=== PATIENT | male | born 1940 | race Caucasian/White ===

== ENCOUNTER → 2017-05-23 | Outpatient (CLI) | payer MEDICARE, OTHER ==
--- NOTE | 2017-05-24 12:45 | RADIOLOGY REPORT (SQ) ---
EXAM DESCRIPTION: PET CT SKULL/THIGH COMPLETED DATE/TIME: 05/23/2017 9:55 pm REASON FOR STUDY: SECONDARY MALIGNANT NEOPLASM OF UNSPECIFIED SITE C79.9 SECONDARY MALIGNANT NEOPLA SM OF UNSPECIFIED SITE COMPARISON: CT abdomen pelvis 09/13/2013 [facility] CT chest 04/27/2017 RADIONUCLIDE AND DOSE: 10.4 mCi F18 FDG The route of agent administration: Intravenous FASTING BLOOD SUGAR: 83 mg/dl CONTRAST TYPE AND DOSE: No CT contrast given. TECHNIQUE: Blood glucose level was verified. Above dose of FDG was injected intravenously. 2-D seg mented attenuation correction images were obtained from the base of the skull to the midthighs. Nonc ontrast CT images were obtained for attenuation correction and fusion with emission images. CT image s were performed without oral or intravenous contrast and are not sensitive for parenchymal lesions. A series of overlapping emission PET images were obtained. Images reviewed and manipulated at [facility] work station by the radiologist. Images stored on PACS. LIMITATIONS: None. FINDINGS: HEAD AND NECK: No areas of abnormal metabolic activity in the soft tissues of the head and neck. CHEST: No areas of abnormal metabolic activity in the chest. ABDOMEN AND PELVIS: There is diffuse increased uptake along the hepatic flexure colon and splenic fle xure colon, SUV ranging from 6 through 10. Areas of colitis are suspected. There are ill-defined areas of increased uptake in the liver ranging from 5.5 to 6.4 SUV. Consider l iver MRI without and with contrast to evaluate for diffusely infiltrative hepatocellular malignancy o r cholangitis PROXIMAL LOWER EXTREMITIES: No areas of abnormal metabolic activity in the soft tissues of the lower extremities. BONES: There are multiple lytic lesions with increased marrow activity worrisome for either myeloma o r metastatic disease. Findings are as follows: Bilateral proximal humeral metaphysis with diffuse increased uptake SUV 3.3. Manubrium sternum lytic lesions 3.8 to 4.4 SUV T4 vertebral body lytic lesion SUV 2.9 T7 vertebral body lytic lesion SUV 3 Leftward S1 level lytic lesion with SUV 5.5 Medial left acetabular lytic lesion with SUV 5.6. ADDITIONAL CT FINDINGS: Fatty left inguinal hernia. Colonic diverticulosis. Degenerative disc ortega es lumbar spine. T11 hemangioma. OTHER: Liver background activity 3.5 SUV. Blood pool background activity 2.0 SUV IMPRESSION: Diffuse lytic lesions in the bones with metabolic activity above blood pool. Findings a re worrisome for either myeloproliferative disease or metastatic disease Colonic activity along the hepatic flexure and splenic flexure, abnormal but nonspecific. TECHNICAL DOCUMENTATION: JOB ID: [id number] [employer]- All Rights Reserved Reading location - IP/workstation name: [email or web address]
== END ==
LOC: RAD 17:32
PROVIDERS: ATTEND Specialist/Technologist Athletic Trainer
DX: C79.9 Secondary malignant neoplasm of unspecified site (principal); K57.30 Diverticulosis of large intestine without perforation or abscess without bleeding; D18.09 Hemangioma of other sites; K40.90 Unilateral inguinal hernia, without obstruction or gangrene, not specified as recurrent
CPT/HCPCS: 78815; A9552

== ENCOUNTER 2018-10-01 19:16 | Emergency (ER) | payer MEDICARE, OTHER ==
[~2018-10-01 19:16] MED LIST: ETOMIDATE INJ/PF 20 MG/10 ML SDV IV ONE; SUCCINYLCHOLINE CHLORIDE INJ 200 MG/10 ML VIAL ONE; VECURONIUM BROMIDE INJ 10 MG VIAL IV ONE
--- NOTE | 2018-10-01 20:12 | ER Document Report ---
ED General - General Chief Complaint: Probable Seizure Stated Complaint: POSSIBLE SEIZURE Time Seen by Provider: 10/01/18 19:24 Primary Care Provider: VAMSHI RANDHAWA DO [Primary Care Provider] - Follow up as needed Mode of Arrival: Medic TRAVEL OUTSIDE OF THE [place] IN LAST 30 DAYS: No - HPI Notes: No history is able to be obtained from patient. History was obtained from EMS. EMS states the patient was talking to a police communications operator on the side of the road when he had a seizure. At this time police called EMS. EMS states when they came the patient was talking but then had another seizure. They administered Versed. Patient then had another seizure in the back of the ambulance and patient was given Ativan. No further seizures after this. They states each seizure lasted approximately 30 to 45 seconds. It involved tonic-clonic diffuse activity. Patient has no history known of seizure disorder or recent trauma. No known recent history of fevers illnesses of vomiting or diarrhea. Patient will not communicate or follow commands so no history can be obtained from patient. Symptoms are intermittent. They were severe. Nothing appeared to make them worse. They were better with benzodiazepines. No known radiation of the symptoms. - Related Data Allergies/Adverse Reactions: No Known Allergies Allergy (Verified 08/21/12 09:20) Past Medical History - General Information source: Emergency Med Personnel - Social History Smoking Status: Never Smoker Frequency of alcohol use: None Drug Abuse: None Family History: Reviewed & Not Pertinent - Past Medical History Cardiac Medical History: Denies: Hx Coronary Artery Disease, Hx Heart Attack, Hx Hypertension Pulmonary Medical History: Denies: Hx Asthma, Hx Bronchitis, Hx COPD, Hx Pneumonia Neurological Medical History: Denies: Hx Cerebrovascular Accident, Hx Seizures GI Medical History: Reports: Hx Crohn's Disease Musculoskeletal Medical History: Reports Hx Arthritis - Generalized Past Surgical History: Reports: Hx Orthopedic Surgery. Denies: Hx Pacemaker - Immunizations Hx Diphtheria, Pertussis, Tetanus Vaccination: No Review of Systems - Review of Systems -: Yes ROS unobtainable due to patient's medical condition - Patient is nonverbal at this time and will not follow simple commands. Physical Exam - Vital signs Vitals: Pulse Ox 98 10/01/18 21:32 Interpretation: Hypertensive - General General appearance: Lethargic In distress: None - HEENT Head: Normocephalic, Atraumatic Eyes: Normal Pupils: PERRL Mouth/Lips: Normal Mucous membranes: Moist Neck: Normal - Respiratory Respiratory status: No respiratory distress Chest status: Nontender Breath sounds: Normal Chest palpation: Normal - Cardiovascular Rhythm: Regular Heart sounds: Normal auscultation Murmur: No - Abdominal Inspection: Normal Distension: No distension Bowel sounds: Normal Tenderness: Nontender Organomegaly: No organomegaly - Back Back: Normal, Nontender - Extremities General upper extremity: Normal inspection, Nontender, Normal color, Normal tem perature General lower extremity: Normal inspection, Nontender, Edema - Patient has 2+ bilateral lower extremity edema, Normal color, Normal temperature. No: Raquel's sign - Neurological Cognition: Confused Orientation: Disoriented to person, Disoriented to place, Disoriented to time Annie Coma Scale Eye Opening: To Voice [place] Coma Scale Verbal: Incomprehensible Annie Coma Scale Motor: Localizes to Pain [place] Coma Scale Total: 10 Speech: Expressive aphasia Cranial nerves: No: Facial palsy, Gaze palsy Motor strength normal: LUE, RUE, LLE, RLE Sensory: Normal - Psychological Associated symptoms: Psychomotor depression, Uncooperative - Skin Skin Temperature: Warm Skin Moisture: Dry Skin Color: Normal Course - Re-evaluation Re-evalutation: 10/01/18 20:11 Patient reevaluated proxy 30 minutes after arrival. Patient responds to voice and looks at me every time I talked. However he still will not respond verbally. Occasionally he will grumble but is incomprehensible. He will follow simple commands like open your eyes but other simple commands such as hold up one finger or stick out your tongue he will not follow. 10/01/18 21:46 At this time patient has been intubated. He is sedated with propofol. Vitals are unremarkable. I discussed the case with the transfer center at . They have asked me to give mannitol and TXA. Transportation is being arranged. - Vital Signs Vital signs: Temp Pulse Resp BP Pulse Ox 98 10/01/18 21:32 - Laboratory Result Diagrams: 10/01/18 21:18 10/01/18 19:30 Laboratory results interpreted by me: 10/01/18 10/01/18 10/01/18 19:29 19:30 21:18 Hgb 12.9 L RDW 16.0 H Carbon Dioxide 20 L POC Glucose 112 H Direct Bilirubin 0.5 H Alkaline Phosphatase 218 H 10/01/18 21:46 Laboratory 10/01/18 10/01/18 10/01/18 19:29 19:30 19:30 WBC Cancelled RBC Cancelled Hgb Cancelled Hct Cancelled MCV Cancelled MCH Cancelled MCHC Cancelled RDW Cancelled Plt Count Cancelled Seg Neutrophils % Cancelled Lymphocytes % Cancelled Monocytes % Cancelled Eosinophils % Cancelled Basophils % Cancelled Absolute Neutrophils Cancelled Absolute Lymphocytes Cancelled Absolute Monocytes Cancelled Absolute Eosinophils Cancelled Absolute Basophils Cancelled Platelet Estimate Cancelled Sodium 142.0 Potassium 4.3 Chloride 105 Carbon Dioxide 20 L Anion Gap 17 BUN 17 Creatinine 1.04 Est GFR ( Amer) > 60 Est GFR (Non-Af Amer) > 60 Glucose 106 POC Glucose 112 H Calcium 9.5 Magnesium 1.7 Total Bilirubin 0.6 Direct Bilirubin 0.5 H Neonat Total Bilirubin Not Reportable Neonat Direct Bilirubin Not Reportable Neonat Indirect Bili Not Reportable AST 53 ALT 33 Alkaline Phosphatase 218 H Troponin I Total Protein 7.5 Albumin 4.1 Slides for Path Review Cancelled 10/01/18 10/01/18 19:30 21:18 WBC 9.9 RBC 4.65 Hgb 12.9 L Hct 39.5 MCV 85 MCH 27.6 MCHC 32.6 RDW 16.0 H Plt Count 287 Seg Neutrophils % 71.7 Lymphocytes % 16.6 Monocytes % 10.4 Eosinophils % 0.5 Basophils % 0.8 Absolute Neutrophils 7.1 Absolute Lymphocytes 1.6 Absolute Monocytes 1.0 Absolute Eosinophils 0.0 Absolute Basophils 0.1 Platelet Estimate Sodium Potassium Chloride Carbon Dioxide Anion Gap BUN Creatinine Est GFR ( Amer) Est GFR (Non-Af Amer) Glucose POC Glucose Calcium Magnesium Total Bilirubin Direct Bilirubin Neonat Total Bilirubin Neonat Direct Bilirubin Neonat Indirect Bili AST ALT Alkaline Phosphatase Troponin I 0.017 Total Protein Albumin Slides for Path Review - Diagnostic Test Radiology reviewed: Image reviewed Radiology results interpreted by me: 10/01/18 21:46 I reviewed the patient's head CT myself. It appears to show a left parietal hemorrhage. I have discussed this case with [facility]. They asked me to give TXA and mannitol. This has been ordered. Procedures - Intubation Orotracheal Airway evaluation: Large tongue, Obese Mallampati Classification: Class 3 Medications: Etomidate, Succinylcholine Intubation method: Orotracheal Blade type: [place] Blade size: 4 Equipment used: Glidescope ETT size: 8.0 ETT secured at: Teeth ETT secured at (cm): 23 Breath Sounds after Intubation: Equal Post Intubation Xray: Yes Intubation Complications: Other - right mainstem, will pull back Critical Care Note - Critical Care Note Total time excluding time spent on procedures (mins): 60 Comments: 60 minutes of critical care time was spent on this patient excluding procedures. This time was spent discussing care with family. During multiple reassessments. Reviewing imaging and laboratories. Discharge - Discharge Clinical Impression: Crohn disease Qualifiers: Gastrointestinal tract location: unspecified location Digestive disease complication type: without complication Qualified Code(s): K50.90 - Crohn's disease, unspecified, without complications Condition: Critical Disposition: [facility] Referrals: VAMSHI RANDHAWA DO [Primary Care Provider] - Follow up as needed
[2018-10-01] MEDS ORDERED: LORAZEPAM INJ 2 MG/1 ML VIAL ONE (20:49)
[2018-10-01] MEDS ORDERED: SUCCINYLCHOLINE CHLORIDE INJ 200 MG/10 ML VIAL IV ONE (21:02)
[2018-10-01] MEDS ORDERED: ETOMIDATE INJ/PF 20 MG/10 ML SDV IV ONE (21:02)
[2018-10-01] MEDS ORDERED: PROPOFOL 1,000 MG/100 ML INFUS..BTL IV ONE (21:05)
[2018-10-01 21:08] LABS: ALBUMIN 4.1 g/dL (3.5-5.0); ALKALINE PHOSPHATASE 218 U/L (38-126); ANION GAP 17 (5-19); ASPARTATE AMINO TRANSFERASE 53 U/L (17-59); BILIRUBIN,DIRECT 0.5 mg/dL (0.0-0.4); BILIRUBIN,TOTAL 0.6 mg/dL (0.2-1.3); BLOOD UREA NITROGEN 17 mg/dL (7-20); CALCIUM 9.5 mg/dL (8.4-10.2); CARBON DIOXIDE 20 mmol/L (22-30); CHLORIDE 105 mmol/L (98-107); GLUCOSE 106 mg/dL (75-110); POTASSIUM 4.3 mmol/L (3.6-5.0); TOTAL PROTEIN 7.5 g/dL (6.3-8.2)
[2018-10-01] MEDS: PROPOFOL 1,000 MG/100 ML INFUS..BTL IV PRN ×2 (21:10→23:07)
[2018-10-01] MEDS ORDERED: LORAZEPAM INJ 2 MG/1 ML VIAL IV ONE (21:21)
[2018-10-01 21:35] LABS: ABSOLUTE BASOPHILS # (AUTO) 0.1 10^3/uL (0.0-0.2); ABSOLUTE LYMPHOCYTES (AUTO) 1.6 10^3/uL (0.5-4.7); ABSOLUTE NEUT (AUTO) 7.1 10^3/uL (1.7-8.2); BASOPHILS % (AUTO) 0.8 % (0-2); EOSINOPHILS % (AUTO) 0.5 % (0-6); HEMATOCRIT 39.5 % (37.9-51.0); HEMOGLOBIN 12.9 g/dL (13.5-17.0); LYMPHOCYTES % (AUTO) 16.6 % (13-45); MEAN CORPUSCULAR HEMOGLOBIN 27.6 pg (27.0-33.4); MEAN CORPUSCULAR HGB CONC 32.6 g/dL (32.0-36.0); MEAN CORPUSCULAR VOLUME 85 fl (80-97); MONOCYTES % (AUTO) 10.4 % (3-13); PLATELET COUNT 287 10^3/uL (150-450); RED BLOOD COUNT 4.65 10^6/uL (4.35-5.55); SEGMENTED NEUTROPHILS % (AUTO) 71.7 % (42-78); TOTAL CELLS COUNTED % (AUTO) 100 %; WHITE BLOOD COUNT 9.9 10^3/uL (4.0-10.5)
[2018-10-01] MEDS ORDERED: TRANEXAMIC ACID INJ/PF 1,000 MG/10 ML SDV IV ONE ×2 (21:42→22:07)
[2018-10-01] MEDS ORDERED: MANNITOL 500 ML IV ONE ×2 (21:43→22:00)
--- NOTE | 2018-10-01 21:43 | RADIOLOGY REPORT (SQ) ---
EXAM DESCRIPTION: RadLex: CT HEAD WITHOUT IV CONTRAST CLINICAL HISTORY: 78 years Male; pari, susanna TECHNIQUE: Noncontrast CT head. All CT scans at this facility use dose modulation, iterative reconstruction, and/or weight based dosing when appropriate to reduce radiation dose to as low as reasonably achievable. COMPARISON: PET CT 05/23/2017.. FINDINGS: There is a lytic destructive mass in the clivus. This extends through the posterior wall of right sphenoid sinus as well as through the posterior cortex of the clivus. Although precise measurements are difficult on this noncontrast exam, the lesion is approximately 2.3 cm LR by 1.9 cm SI by 2.5 cm AP. The lesion extends at least partially into the prepontine cistern, although there is no significant mass effect on the livia. This lesion was present on the previous PET/CT, although not metabolically active. In the left parietal lobe there is an area of calcification in the deep white matter approximately 1.3 x 1 x 2.4 cm. There is some mass effect on the atrium of the left lateral ventricle, but no significant vasogenic edema. Visualized portions of paranasal sinuses and mastoids are clear. No acute calvarial fractures. There is a lucent nonexpansile superior left parietal calvarial lesion 1.7 cm LR by 1.5 cm AP by 0.5 cm in thickness. This lesion is not included on the previous PET/CT. IMPRESSION: 1. Lytic lesion of the clivus, suspicious for malignancy. 2. Amorphous calcification in the left parietal lobe with mild mass effect. 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 3. Indeterminate left parietal nonexpansile lytic calvarial lesion 4. MRI of the brain with and without contrast is recommended to evaluate these lesions. Additional high-resolution skull base images should be obtained in addition to the routine MRI brain protocol.
[2018-10-01] MEDS ORDERED: NORMAL SALINE 1000 ML 1,000 ML IV ONE (21:45)
[2018-10-01] MEDS ORDERED: LEVETIRACETAM 1000 MG/NACL-ISO 1,000 MG/100 ML RTUPB IV SCH (22:00)
--- NOTE | 2018-10-01 22:05 | RADIOLOGY REPORT (SQ) ---
XR CHEST 1 VIEW EXAM DATE: 10/01/2018 12:00 AM CDT HISTORY: Postintubation. COMPARISON: None. FINDINGS: The heart size is within normal limits. No consolidation, pleural effusion, or pneumothorax is seen. The bony thorax is intact. The endotracheal tube is 2.2 cm from the tico. The distal tip of the enteric tube is near the GE junction; recommend advancement 2 to 3 cm. IMPRESSION: Support devices as above.
[2018-10-01] MEDS ORDERED: MANNITOL 0 ML IV ONE (22:07)
[2018-10-01 22:28] LABS: APPEARANCE,URINE CLEAR; BILIRUBIN,URINE NEGATIVE (NEGATIVE); COLOR,URINE YELLOW; GLUCOSE, URINE NEGATIVE (NEGATIVE); KETONES,URINE NEGATIVE (NEGATIVE); LEUKOCYTE ESTERASE,URINE NEGATIVE (NEGATIVE); NITRITE,URINE NEGATIVE (NEGATIVE); PROTEIN,URINE NEGATIVE (NEGATIVE); URINE SPECIFIC GRAVITY 1.016; UROBILINOGEN,URINE NEGATIVE mg/dL (<2.0)
[2018-10-01 23:02] VITALS: BP 159/90
--- NOTE | 2018-10-02 10:13 | EKG REPORT ---
SEVERITY:- BORDERLINE ECG - SINUS ARRHYTHMIA, RATE 69-82 LEFT AXIS DEVIATION BORDERLINE PROLONGED QT INTERVAL : Confirmed by: Bia Ambrose MD 02-Oct-2018 10:12:21
== END 2018-10-01 23:27 | disposition short-term general hospital (02) ==
LOC: ER 19:16
DX: K50.90 Crohn's disease, unspecified, without complications (principal); R56.9 Unspecified convulsions; R41.0 Disorientation, unspecified; R47.01 Aphasia; I10 Essential (primary) hypertension
CPT/HCPCS: 36415; 87040; 82962; 83735; 85025; 80053; 81001; 84484; 71045; 70450; 94002; 31500; J2704; J2060; J0330; J2150; J1953; J3490; 93005; 93010